=== PATIENT | female | born 1985 ===

== ENCOUNTER 2018-02-14 00:04 | Emergency (ER) | payer SELFPAY ==
[2018-02-14 00:47] VITALS: BMI 28.3
[2018-02-14 00:49] VITALS: TEMP 98.7
--- NOTE | 2018-02-14 02:21 | ED PDOC ---
HPI: Abdomen Time Seen by Provider: 02/14/18 01:14 Chief Complaint (Nursing): GI Problem Chief Complaint (Provider): Constipation History Per: Patient History/Exam Limitations: no limitations Onset/Duration Of Symptoms: Days (x5) Last Bowel Movement: Days Ago (5) Additional Complaint(s): Joe Juarez, a 32 year old female with long standing history of constipation, present to the emergency room with constipation. Patient states she started a new diet medication this week and because of that, has not had a bowel movement in 5 days. Patient reports feeling rectal pressure, back pain and abdominal distention. No further medical complaints. Past Medical History Reviewed: Historical Data, Nursing Documentation, Vital Signs Vital Signs: Last Vital Signs Temp 98.7 F 02/14/18 00:47 Pulse 95 H 02/14/18 00:47 Resp 18 02/14/18 00:47 BP 104/74 02/14/18 00:47 Pulse Ox 99 02/14/18 00:47 - Medical History PMH: Anemia Denies: Chronic Kidney Disease, Sexually Transmitted Disease - Family History Family History: States: Unknown Family Hx - Home Medications Home Medications: Ambulatory Orders Medication Instructions Recorded Ferrous Sulfate [Feosol] 325 mg PO BID #60 tab 03/16/16 Sod Phos,M-B/Na Phos,Di-Ba [Fleet 133 ml RC DAILY #5 enema 02/14/18 Enema] - Allergies Allergies/Adverse Reactions: Allergies Allergy/AdvReac Type Severity Reaction Status Date / Time No Known Allergies Allergy Verified 02/14/18 00:47 Review of Systems ROS Statement: Except As Marked, All Systems Reviewed And Found Negative Gastrointestinal: Positive for: Constipation, Rectal Pain (pressure), Other ( abdominal distension) Musculoskeletal: Positive for: Back Pain Physical Exam - Reviewed Nursing Documentation Reviewed: Yes Vital Signs Reviewed: Yes - Physical Exam Appears: Positive for: Well, Non-toxic, No Acute Distress Head Exam: Positive for: ATRAUMATIC, NORMAL INSPECTION, NORMOCEPHALIC Skin: Positive for: Normal Color, Warm, DRY Eye Exam: Positive for: EOMI, Normal appearance, PERRL ENT: Positive for: Normal ENT Inspection Neck: Positive for: Normal, Painless ROM Cardiovascular/Chest: Positive for: Regular Rate, Rhythm Respiratory: Positive for: Normal Breath Sounds. Negative for: Respiratory Distress Gastrointestinal/Abdominal: Positive for: Normal Exam, Soft Back: Positive for: Normal Inspection Rectal: Positive for: Other (no hard stool palpated, rental sales associate nurse Radha ward) Extremity: Positive for: Normal ROM Neurologic/Psych: Positive for: Alert, Oriented - ECG O2 Sat by Pulse Oximetry: 99 (RA) Pulse Ox Interpretation: Normal Medical Decision Making Medical Decision Making: Time: 1:14 A/P: patient presenting with constipation manually unable to disintact, will give enema, lactulose and reevaluate Initial Plan: --Enulose 20 mg PO --Fleet Enema 135 ml MI 4AM --Patient had large BM --Feeling better --Will d/c home Scribe Attestation: Documented by Ann-Marie Salinas, acting as a scribe for Brendan Wilkes MD. Provider Scribe Attestation: All medical record entries made by the Scribe were at my direction and personally dictated by me. I have reviewed the chart and agree that the record accurately reflects my personal performance of the history, physical exam, medical decision making, and the department course for this patient. I have also personally directed, reviewed, and agree with the discharge instructions and disposition. Disposition - Clinical Impression Clinical Impression: Constipation - Patient ED Disposition Is Patient to be Admitted: No - Disposition Referrals: [facility] [Outside] Disposition: Routine/Home Disposition Time: 04:51 Condition: IMPROVED Prescriptions: Sod Phos,M-B/Na Phos,Di-Ba [Fleet Enema] 133 ml RC DAILY #5 enema Instructions: Constipation in Adults Forms: [employer] (Yoruba)
[2018-02-14 05:18] VITALS: BP 120/69; PULSE 78; RESP 16; O2SAT 100
== END 2018-02-14 05:00 | disposition home or self-care (01) ==
LOC: H.ER 00:04
DX: K59.00 Constipation, unspecified (principal)
CPT/HCPCS: 96372; 99283; J1885

== ENCOUNTER 2018-09-07 13:03 | Emergency (ER) | payer SELFPAY ==
[2018-09-07 13:04] VITALS: BMI 28.3
[2018-09-07 13:12] VITALS: BP 119/71; PULSE 93; RESP 15; TEMP 98.4
--- NOTE | 2018-09-07 13:36 | ED PDOC ---
HPI: Female Pain Time Seen by Provider: 09/07/18 13:15 Chief Complaint (Nursing): Female Genitourinary Chief Complaint (Provider): Female Genitourinary History Per: Patient History/Exam Limitations: no limitations Onset/Duration Of Symptoms: Days (x2 days ) Additional Complaint(s): Patient is a 33 year old female that is approximately x13 weeks with a past medical history of anemia, who presents to the emergency department complaining of pelvic pain that is associated with brownish discharge and dysuria, onset x2 days. PMD: Joseph Dela Cruz Past Medical History Reviewed: Historical Data, Nursing Documentation, Vital Signs Vital Signs: Last Vital Signs Temp 98.4 F 09/07/18 13:11 Pulse 93 H 09/07/18 13:11 Resp 15 09/07/18 13:11 BP 119/71 09/07/18 13:11 Pulse Ox 98 09/07/18 13:11 - Medical History PMH: Anemia Denies: Chronic Kidney Disease, Sexually Transmitted Disease - Surgical History Surgical History: No Surg Hx - Family History Family History: States: Unknown Family Hx - Home Medications Home Medications: Ambulatory Orders Medication Instructions Recorded Ferrous Sulfate [Feosol] 325 mg PO BID #60 tab 03/16/16 Sod Phos,M-B/Na Phos,Di-Ba [Fleet 133 ml RC DAILY #5 enema 02/14/18 Enema] Nitrofurantoin Macrocrystals 100 mg PO BID #14 cap 09/07/18 [Macrobid] - Allergies Allergies/Adverse Reactions: Allergies Allergy/AdvReac Type Severity Reaction Status Date / Time No Known Allergies Allergy Verified 09/07/18 13:09 Review of Systems ROS Statement: Except As Marked, All Systems Reviewed And Found Negative Genitourinary Female: Positive for: Dysuria, Pelvic Pain, Other (brownish discharge) Physical Exam - Reviewed Nursing Documentation Reviewed: Yes Vital Signs Reviewed: Yes - Physical Exam Appears: Positive for: Non-toxic, No Acute Distress Head Exam: Positive for: ATRAUMATIC Skin: Positive for: Normal Color, Warm, Dry Cardiovascular/Chest: Positive for: Regular Rate, Rhythm. Negative for: Murmur Respiratory: Positive for: Normal Breath Sounds. Negative for: Respiratory Distress Gastrointestinal/Abdominal: Positive for: Normal Exam, Soft. Negative for: Tenderness Pelvic Exam: Positive for: Other (Cervix is closed). Negative for: No Masses, Tender Adnexa Neurological/Psych: Positive for: Alert, Oriented - Laboratory Results Result Diagrams: 09/07/18 13:12 - ECG O2 Sat by Pulse Oximetry: 98 (RA) Pulse Ox Interpretation: Normal Medical Decision Making Medical Decision Making: Time: 1321 Plan: Will obtain US as well as urine and blood work to rule out miscarriage --BBK Type and screen --Beta-HCG quantitative --CBC with differential --Urine culture --Urinalysis --OB transvaginal US Scribe Attestation: Documented by Stephen Reddy, acting as a scribe Minh Palmer MD. Provider Scribe Attestation: All medical record entries made by the Scribe were at my direction and personally dictated by me. I have reviewed the chart and agree that the record accurately reflects my personal performance of the history, physical exam, medical decision making, and the department course for this patient. I have also personally directed, reviewed, and agree with the discharge instructions and disposition. Disposition - Clinical Impression Clinical Impression: Threatened miscarriage, Urinary tract infection - Patient ED Disposition Is Patient to be Admitted: No Counseled Patient/Family Regarding: Studies Performed, Diagnosis, Need For Followup, Rx Given - Disposition [facility] Disposition: Routine/Home Disposition Time: 15:34 Condition: FAIR Prescriptions: Nitrofurantoin Macrocrystals [Macrobid] 100 mg PO BID #14 cap Instructions: Urinary Tract Infections in Adults, Threatened Miscarriage Forms: [employer] (Vincentian) Print Language: CITIZ[place]
[2018-09-07 14:37] LABS: BASO # 0.1 K/uL (0.0-0.2); BASO % 0.7 % (0.0-2.0); EOS # 0.2 K/uL (0.0-0.7); EOS % 2.2 % (0.0-4.0); HEMOGLOBIN 11.8 g/dL (12.0-16.0); LYMPH # 1.7 K/uL (1.0-4.3); LYMPH % 22.1 % (20.0-40.0); MEAN CELL VOLUME 79.9 fl (81.0-99.0); MEAN CORPUSCULAR HEMOGLOBIN 26.1 pg (27.0-31.0); MEAN CORPUSCULAR HGB CONC 32.7 g/dL (33.0-37.0); MEAN PLATELET VOLUME 8.9 fl (7.2-11.7); MONO # 0.3 K/uL (0.0-0.8); MONO % 4.3 % (0.0-10.0); NEUT # 5.3 K/uL (1.8-7.0); NEUT % 70.7 % (50.0-75.0); RBC 4.51 Mil/uL (3.80-5.20); RED CELL DISTRIBUTION WIDTH 24.5 % (11.5-14.5); WHITE BLOOD COUNT 7.5 K/uL (4.8-10.8)
--- NOTE | 2018-09-07 15:56 | US ---
Date of service: 09/07/2018 PROCEDURE: Obstetrical ultrasound examination HISTORY: vag bleed COMPARISON: Not available TECHNIQUE: Transabdominal FINDINGS: Obstetrical ultrasound examination demonstrates a single live intrauterine gestation in variable presentation. The heart rate is 155 beats per minute. The crown-rump length is 6.4 cm, equal to 12 weeks 6 days gestational age. The gestational sac diameter is 6.3 cm, out of range for age determination. An anterior placenta is identified. There is no evidence of placenta previa. The cervix is closed and measures approximately 4 cm in length. There is a small subchorionic hemorrhage the fundal aspect of the uterus measuring approximately 0.8 x 1.1 x 1.8 cm. The uterus measures 7.5 x 10.3 x 13.9 cm. There is no uterine mass identified. The ovaries are not visualized. No adnexal masses are seen. IMPRESSION: Single live intrauterine gestation of approximately 12 weeks 6 days gestational age. Small subchorionic hemorrhage. Cervix long and closed. heart rate 155 beats per minute.
[2018-09-07 15:59] VITALS: O2SAT 100
[2018-09-07 16:32] LABS: SQUAMOUS EPITHIAL 4 /hpf (0-5); URINE BACTERIA OCC (<OCC); URINE BILIRUBIN NEGATIVE (NEGATIVE); URINE BLOOD NEGATIVE (NEGATIVE); URINE CLARITY SLIGHTY-CLOUDY (Clear); URINE COLOR STRAW (YELLOW); URINE GLUCOSE (UA) NEG (NEGATIVE); URINE LEUKOCYTE ESTERASE SMALL Leu/uL (Negative); URINE PROTEIN NEGATIVE (NEGATIVE); URINE UROBILINOGEN 0.2-1.0 mg/dL (0.2-1.0)
== END 2018-09-07 15:50 | disposition home or self-care (01) ==
LOC: H.ER 13:03
DX: O20.0 Threatened abortion (principal); O23.41 Unspecified infection of urinary tract in pregnancy, first trimester; D64.9 Anemia, unspecified; O99.011 Anemia complicating pregnancy, first trimester; Z3A.12 12 weeks gestation of pregnancy